=== PATIENT | female | born 1965 | race Caucasian/White ===

== ENCOUNTER 2016-06-28 18:39 | Emergency (ER) | payer OTHER ==
[2016-06-28 18:53] VITALS: TEMP 98.4; BMI 29.9
--- NOTE | 2016-06-28 19:29 | PDOC ---
History of Present Illness - General History Source: Patient Exam Limitations: No Limitations - History of Present Illness Initial Comments: 06/28/16 20:12 Patient is a 47 year old female with history of hypothyroidism who presents to the ED with chest pain for several weeks. Patient reports chest pain occasionally radiating to the back and LUQ. Patient notes that deep inspiration makes the pain worse. She has been taking Aleve with mild relief. She states that she had this pain before and was told that she had a lung infection and is unsure if it was pneumonia. No fever or chills. No recent travel or trauma. She denies use of oral contraceptives. <Nithya Beltran - Last Filed: 06/28/16 20:12> - General History Source: Patient <Jose Youngblood - Last Filed: 06/28/16 22:28> - General Chief Complaint: Chest Pain Stated Complaint: CHEST PAIN Time Seen by Provider: 06/28/16 19:29 Past History <Nithya Beltran - Last Filed: 06/28/16 20:12> - Past Medical History Suicide Attempt (Hx): No Thyroid Disease: Yes (HYPO) - Immunization History Immunization Up to Date: Yes - Psycho/Social/Smoking Cessation Hx Anxiety: No Suicidal Ideation: No Smoking History: Never smoked Have you smoked in the past 12 months: No Information on smoking cessation initiated: No Hx Alcohol Use: No Drug/Substance Use Hx: No Substance Use Type: None <Jose Youngblood - Last Filed: 06/28/16 22:28> - Past Medical History Allergies/Adverse Reactions: Allergies Allergy/AdvReac Type Severity Reaction Status Date / Time No Known Allergies Allergy Verified 06/28/16 18:53 Home Medications: Ambulatory Orders Levothyroxine [Synthroid -] 137 mcg PO DAILY 03/28/13 Ibuprofen 800 mg PO TID #30 tablet 06/28/16 Methocarbamol [Robaxin -] 500 mg PO TID #30 tablet 06/28/16 Review of Systems - Review of Systems Able to Perform ROS?: Yes Comments:: 06/28/16 20:13 CONSTITUTIONAL: Absent: fever, chills, diaphoresis, generalized weakness, malaise, loss of appetite HEENT: Absent: rhinorrhea, nasal congestion, throat pain, throat swelling, difficulty swallowing, mouth swelling, ear pain, eye pain, visual Changes CARDIOVASCULAR: Present: chest pain Absent: syncope, palpitations, irregular heart rate, lightheadedness, peripheral edema RESPIRATORY: Absent: cough, shortness of breath, dyspnea with exertion, orthopnea, wheezing, stridor, hemoptysis GASTROINTESTINAL: Present: LUQ Absent: abdominal distension, nausea, vomiting, diarrhea, constipation, melena, hematochezia GENITOURINARY: Absent: dysuria, frequency, urgency, hesitancy, hematuria, flank pain, genital pain MUSCULOSKELETAL: Present: back pain Absent: myalgia, arthralgia, joint swelling SKIN: Absent: rash, itching, pallor HEMATOLOGIC/IMMUNOLOGIC: Absent: easy bleeding, easy bruising, lymphadenopathy, frequent infections ENDOCRINE: Absent: unexplained weight gain, unexplained weight loss, heat intolerance, cold intolerance NEUROLOGIC: Absent: headache, focal weakness or paresthesias, dizziness, unsteady gait, seizure, mental status changes, bladder or bowel incontinence PSYCHIATRIC: Absent: anxiety, depression, suicidal or homicidal ideation, hallucinations. <Nithya Beltran - Last Filed: 06/28/16 20:12> *Physical Exam - Vital Signs Last Vital Signs Temp Pulse Resp BP Pulse Ox 98.4 F 72 18 129/82 97 06/28/16 18:48 06/28/16 18:48 06/28/16 18:48 06/28/16 18:48 06/28/16 19:13 - Physical Exam Comments: 06/28/16 20:16 GENERAL: Well developed, well nourished. Awake and alert. In no acute distress. HEENT: Normocephalic, atraumatic. PERRLA, EOMI. No conjunctival pallor. Sclerae are non -icteric. Moist mucous membranes. Oropharynx is clear. NECK: Supple. Full ROM. No JVD. Carotid pulses 2+ and symmetric, without bruits. No thyromegaly. No lymphadenopathy. CARDIOVASCULAR: Regular rate and rhythm. No murmurs, rubs, or gallops. Distal pulses are 2+ and symmetric. PULMONARY: No evidence of respiratory distress. Lungs clear to auscultation bilaterally. No wheezing, rales or rhonchi. ABDOMINAL: Soft. Non-tender. Non-distended. No rebound or guarding. No organomegaly. Normoactive bowel sounds. MUSCULOSKELETAL Normal range of motion at all joints. No bony deformities or tenderness. No CVA tenderness. EXTREMITIES: No cyanosis. No clubbing. No edema. No calf tenderness. SKIN: Warm and dry. Normal capillary refill. No rashes. No jaundice. NEUROLOGICAL: Alert, awake, appropriate. Cranial nerves 2-12 intact. No deficits to light touch and temperature in face, upper extremities and lower extremities. No motor deficits in the in face, upper extremities and lower extremities. Normoreflexic in the upper and lower extremities. Normal speech. PSYCHIATRIC: Cooperative. Good eye contact. Appropriate mood and affect. <Nithya Beltran - Last Filed: 06/28/16 20:12> - Vital Signs Last Vital Signs Temp Pulse Resp BP Pulse Ox 98.4 F 72 18 129/82 97 06/28/16 18:48 06/28/16 18:48 06/28/16 18:48 06/28/16 18:48 06/28/16 19:13 <Jose Youngblood - Last Filed: 06/28/16 22:28> ED Treatment Course - LABORATORY CBC & Chemistry Diagram: 06/28/16 19:40 06/28/16 19:40 - ADDITIONAL ORDERS Additional order review: 06/28/16 19:40 RBC 4.71 MCV 83.9 MCHC 33.3 RDW 14.8 MPV 8.1 Neutrophils % 54.2 Lymphocytes % 38.4 D Monocytes % 6.5 Eosinophils % 0.7 Basophils % 0.2 <Nithya Beltran - Last Filed: 06/28/16 20:12> - LABORATORY CBC & Chemistry Diagram: 06/28/16 19:40 06/28/16 19:40 <Jose Youngblood - Last Filed: 06/28/16 22:28> Medical Decision Making - Medical Decision Making 06/28/16 22:28 Dr. Youngblood: The scribe's documentation has been prepared under my direction and personally reviewed by me in its entirery. I confirm that the note above accurately reflects all work, treatment, procedures, and medical decision making performed by me. <Jose Youngblood - Last Filed: 06/28/16 22:28> *DC/Admit/Observation/Transfer - Attestations Scribe Attestion: 06/28/16 20:16 Documentation prepared by SANTO Tyson, acting as medical researcher for Jose Youngblood DO. <Nithya Beltran - Last Filed: 06/28/16 20:12> - Discharge Dispostion Admit: No <Jose Youngblood - Last Filed: 06/28/16 22:28> Diagnosis at time of Disposition: Back pain without radiation, Chest pain - Prescriptions Prescriptions: Ibuprofen 800 mg PO TID #30 tablet Methocarbamol [Robaxin -] 500 mg PO TID #30 tablet - Referrals Referrals: Jojo Merrill MD [Primary Care Provider] - - Patient Instructions Printed Discharge Instructions: DI for Chest Pain
[2016-06-28] MEDS ORDERED: KETOROLAC TROMETHAMINE 30 MG/1 ML VIAL IVPUSH ONE (19:30)
[2016-06-28 19:55] LABS: BASOPHIL 0.2 % (0-2.0); EOSINOPHIL 0.7 % (0-4.5); MCH 27.9 pg (25.7-33.7); MCHC 33.3 g/dl (32.0-36.0); MEAN CELL VOLUME 83.9 fl (80-96); MEAN PLT VOLUME 8.1 fl (7.5-11.1); NEUTROPHILS 54.2 % (42.8-82.8); PLATELET COUNT 205 K/MM3 (134-434); RDW 14.8 % (11.6-15.6); WHITE BLOOD COUNT 7.9 K/mm3 (4.0-10.0)
[2016-06-28 20:15] LABS: INR 1.09 (0.82-1.09)
[2016-06-28] MEDS ORDERED: KETOROLAC TROMETHAMINE 30 MG/1 ML VIAL ONE (20:18)
[2016-06-28 20:22] LABS: ALBUMIN 3.7 g/dl (3.4-5.0); ANION GAP 8 (8-16); BILIRUBIN,TOTAL 0.3 mg/dL (0.2-1.0); CALCIUM 7.6 mg/dL (8.5-10.1); CO2 29 mmol/L (21-32); COCKROFT - GAULT 109.6415; CREATININE 0.8 mg/dL (0.55-1.02); GLUCOSE,RANDOM 116 mg/dL (74-106); MAGNESIUM 2.2 mg/dL (1.8-2.4); SGOT/AST 27 U/L (15-37); SGPT/ALT 43 U/L (12-78); TOT PROT 7.2 g/dl (6.4-8.2)
[2016-06-28 20:23] LABS: TROPONIN I 0.02 ng/ml (0.00-0.05); URINE APPEARANCE CLEAR; URINE BILIRUBIN NEGATIVE (NEGATIVE); URINE COLOR LTYELLOW; URINE GLUCOSE (UA) NEGATIVE (NEGATIVE); URINE KETONE NEGATIVE (NEGATIVE); URINE NITRITE NEGATIVE (NEGATIVE); URINE PROTEIN NEGATIVE (NEGATIVE); URINE UROBILINOGEN NEGATIVE E.U./dl (0.2-1.0)
[2016-06-28 20:25] LABS: ALK PHOS 97 U/L (45-117)
[2016-06-28 20:37] LABS: THYROXINE (T4) 14.7 ug/dl (4.8-13.9)
[2016-06-28 20:42] LABS: URINE BLOOD 3+ (NEGATIVE); URINE LEUK ESTERASE 2+ (NEGATIVE)
[2016-06-28 20:44] LABS: T3 UPTAKE 32.7 % (30-39); THYROID STIMULATING HORMONE 1.2 uIU/ml (0.358-3.74)
[2016-06-28 20:54] VITALS: BP 109/85; PULSE 62
[2016-06-28 20:55] LABS: URINE MUCUS RARE; URINE RBC <1 /hpf (0-3); URINE WBC 5 /hpf (3-5)
[2016-06-28] MEDS ORDERED: CALCIUM CARBONATE 650 MG TABLET PO SCH (21:00)
--- NOTE | 2016-06-29 12:46 | EKG ---
Test Reason : Blood Pressure : / mmHG Vent. Rate : 069 BPM Atrial Rate : 069 BPM P-R Int : 150 ms QRS Dur : 082 ms QT Int : 424 ms P-R-T Axes : 047 049 046 degrees QTc Int : 454 ms NORMAL SINUS RHYTHM POSSIBLE LEFT ATRIAL ENLARGEMENT BORDERLINE ECG NO PREVIOUS ECGS AVAILABLE Confirmed by DON ARDON, JOSE ([id number]) on 06/29/2016 12:46:03 PM Referred By: Confirmed By:JOSE OCHOA MD
== END 2016-06-28 22:35 | disposition home or self-care (01) ==
LOC: JER 18:39
PROC: 3E0333Z Introduction of Anti-inflammatory into Peripheral Vein, Percutaneous Approach (ICD-10-PCS; principal; 2016-06-28)
DX: R07.89 Other chest pain (principal); M54.89 Other dorsalgia; E03.9 Hypothyroidism, unspecified
CPT/HCPCS: 36415; 71020-TC; 80053; 81003; 81015; 82550; 83690; 83735; 83880; 84436; 84439; 84443; 84479; 84484; 84703; 85025; 85379; 85610; 93005; 93010; 99285-25

== ENCOUNTER → 2017-01-03 | Day surgery (SDC) | payer OTHER | END | disposition home or self-care (01) | LOC: JRADIR 09:45 | PROVIDERS: ATTEND Internal Medicine Endocrinology, Diabetes & Metabolism | PROC: 0G9H3ZX Drainage of Right Thyroid Gland Lobe, Percutaneous Approach, Diagnostic (ICD-10-PCS; principal; 2017-01-03) | DX: E04.1 Nontoxic single thyroid nodule (principal) | CPT/HCPCS: 71020-TC; 76942; 88173; 88305-TC ==

== ENCOUNTER → 2019-08-19 | Day surgery (SDC) | payer OTHER ==
--- NOTE | 2019-08-20 16:08 | PATH ---
Cytology Non-Gynecological Report Patient Name: RAISSA GRUBBS [facility]. Rec. #: [id number] /Age/Gender: 1965 (Age: 54) / F Account: [id number] Location: RADIOLOGY INTER Taken: 08/19/2019 Received: 08/19/2019 Reported: 08/20/2019 Physicians: Cristhian Stanley M.D. Specimen(s) Received THYROID, RIGHT LOBE, FINE NEEDLE ASPIRATION Clinical History Right lobe, 1.00 x 0.57 x 0.84 cm Final Diagnosis THYROID, RIGHT LOBE, FINE NEEDLE ASPIRATION: UNSATISFACTORY FOR EVALUATION. BETHESDA CLASS I: NON-DIAGNOSTIC. RARE FOLLICULAR CELLS AND SCANT COLLOID PRESENT. Comment: The specimen has insufficient follicular cell clusters and/or colloid; and suboptimal for complete cytopathologic evaluation according to [employer] [facility] System for Reporting Thyroid FNA. If the nodule has worrisome ultrasound imaging properties, suggest repeat FNA, as warranted. Electronically Signed Martha Dillard M.D. Gross Description Received are eight direct smears, four of which are air-dried and Diff-Quik stained, and four of which are alcohol fixed and Pap stained. Also received is 20 ml of bloody formalin from which one cellblock is prepared.
== END | disposition home or self-care (01) ==
LOC: JRADIR 10:53
PROVIDERS: ATTEND Internal Medicine Endocrinology, Diabetes & Metabolism
PROC: 0G9H3ZX Drainage of Right Thyroid Gland Lobe, Percutaneous Approach, Diagnostic (ICD-10-PCS; principal; 2019-08-19)
DX: E04.1 Nontoxic single thyroid nodule (principal)
CPT/HCPCS: 76942; 88173; 88305-TC

== ENCOUNTER 2020-10-12 19:28 | Emergency (ER) | payer OTHER ==
[2020-10-12 19:32] VITALS: BP 135/85; PULSE 69; TEMP 98.4; BMI 32.4
[2020-10-12] MEDS ORDERED: LIDOCAINE 5% TOPICAL PATCH TP ONE (19:48)
[2020-10-12] MEDS ORDERED: KETOROLAC TROMETHAMINE 30 MG/1 ML VIAL IM ONE (19:48)
[2020-10-12] MEDS ORDERED: LIDOCAINE 5% TOPICAL PATCH ONE (19:53)
[2020-10-12] MEDS ORDERED: KETOROLAC TROMETHAMINE 30 MG/1 ML VIAL ONE (19:53)
[2020-10-12] MEDS ORDERED: LIDOCAINE PATCH REMOVAL MC SCH (22:00)
== END 2020-10-12 20:16 | disposition home or self-care (01) ==
LOC: JER 19:28
PROC: 3E0233Z Introduction of Anti-inflammatory into Muscle, Percutaneous Approach (ICD-10-PCS; principal; 2020-10-12)
DX: M54.5 Low back pain (principal)
CPT/HCPCS: 99284-25